=== PATIENT | male | born 1980 | race African-American/Black ===

== ENCOUNTER 2018-05-16 13:42 | Emergency (ER) | payer OTHER ==
--- NOTE | 2018-05-16 13:44 | ER Report ---
History and Physical Time Seen By MD: 13:43 HPI/ROS CHIEF COMPLAINT: Cut on left hand HISTORY OF PRESENT ILLNESS: Patient is a 37-year-old male who is right hand dominant who was using a pocket knife to cut plastic stick he asked that slipped and cut the dorsum of the left index finger between the MCP and PIP joint. He reports no sensory loss and no loss of motor function. Last tetanus was one year ago. REVIEW OF SYSTEMS: Musculoskeletal: Laceration to 2nd finger left hand Allergies: Coded Allergies: No Known Drug Allergies (Unverified , 05/16/18) Home Meds No Active Prescriptions or Reported Meds Past Medical/Surgical History Noncontributory towards this chief complaint Constitutional Vital Sign - Last 24 Hours 05/16/18 13:54 Temp 98.3 Pulse 106 Resp 12 B/P (MAP) 138/99 Pulse Ox 96 O2 Delivery Room Air Physical Exam General appearance: Alert no distress. Examination of the Left hand reveals no acute deformity. The patient is able to give a thumbs up sign, is able to make an okay sign, and is able to AB duct the fingers. Sensation is intact over the dorsal 1st web space, the volar aspect of the 2nd finger, and the volar aspect of the 5th finger. Capillary refill is brisk. The left index finger had good extension with no loss of function against resistance. The profundus and superficialis tendons were intact. Sensory exam over the dorsal pad of the finger were normal. Patient had a 2 cm V -shaped laceration to the dorsum of the left 2nd finger in between the PIP and MCP joints. Medical Decision Making ED Course/Re-evaluation ED Course 05/16/2018 2:21:40 pm Procedure: Laceration repair. [Verbal consent was obtained from the patient.] The 2 cm V-shaped laceration on the back of the left index finger was anesthetized in the usual fashion. The wound was cleansed, draped and explored to its base with a gloved finger. [ ] There were no deep structures involved. No tendon injury was identified. The wound was repaired with 7 single interrupted 5-0 Ethilon sutures. The wound repair was simple. The procedure was performed by myself. Decision to Disposition Date: May 16, 2018 Decision to Disposition Time: 14:23 Depart Departure Latest Vital Signs Vital Signs Date Time Temp Pulse Resp B/P (MAP) Pulse Ox O2 Delivery O2 Flow Rate FiO2 05/16/18 13:54 98.3 106 12 138/99 96 Room Air Impression: Primary Impression: Laceration Condition: Improved Disposition: HOME OR SELF-CARE New Scripts No Active Prescriptions or Reported Meds Patient Instructions: Finger Laceration (ED) Additional Instructions: Keep your injury clean and dry at all times. Use topical bacitracin or Neosporin twice a day over the wound. You should follow-up with your primary care provider for suture removal in 10- 14 days. If you develop signs or symptoms of infection as discussed you should go to the nearest emergency department or see your primary care provider ARY RING MD May 16, 2018 13:44
[2018-05-16 13:54] VITALS: BP 138/99
[2018-05-16] MEDS ORDERED: BUPIVACAINE 0.5% INJ 50ML VIAL INFIL ONE (13:54)
== END 2018-05-16 14:37 | disposition home or self-care (01) ==
LOC: ER 13:48
DX: S61.211A Laceration without foreign body of left index finger without damage to nail, initial encounter (principal)
CPT/HCPCS: 99282